=== PATIENT | male | born 1975 | race African-American/Black ===

== ENCOUNTER 2017-10-29 23:39 | Emergency (ER) | payer SELFPAY ==
[~2017-10-29] VITALS: Ht 180.3 cm; Wt 91.0 kg
[2017-10-30] MEDS ORDERED: ACETAMINOPHEN 325MG TABLET PO STA (00:10)
[2017-10-30] MEDS ORDERED: CEFTRIAXONE 1 G PREMIX 50 ML IV ONE (00:15)
[2017-10-30] MEDS ORDERED: ASPIRIN 81MG TABLET PO ONE (00:15)
[2017-10-30] MEDS ORDERED: AZITHROMYCIN 500 MG in DEXT 5% WATER 250 ML IV ONE (00:15)
[2017-10-30] MEDS ORDERED: SODIUM CHLORIDE 0.9% 1000ML BAG (SEPSIS BOLUS) IV ONE (00:15)
[2017-10-30] MEDS ORDERED: NITROGLYCERIN OINT 1GM/INCH UDPKT TD ONE (00:15)
[2017-10-30] MEDS ORDERED: KETOROLAC 30MG/ML VIAL IV NR (00:35)
[2017-10-30 00:42] LABS: BASOPHILS % 0.3 % (0.0-2.0); HEMATOCRIT. 43.6 % (42.0-52.0); HEMOGLOBIN. 14.8 g/dL (14.0-18.0); LYMPHOCYTES % 7.7 % (20.0-50.0); MEAN CORPUSCULAR HEMOGLOBIN 27.9 pg (28.0-32.0); MEAN CORPUSCULAR VOLUME 82.5 fL (80.0-94.0); MEAN PLATELET VOLUME 8.5 fl (7.4-10.4); MONOCYTES % 11.8 % (2.0-8.0); NEUTROPHILS % 80.2 % (40.0-76.0); PLATELET 207 x1000/uL (130-400); RED BLOOD CELL COUNT 5.28 mill/uL (4.7-6.1); RED CELL DISTRIBUTION WIDTH 13.5 % (11.6-14.6)
[2017-10-30 00:50] LABS: INR 1.2; PROTHROMBIN TIME 12.2 sec (9.4-11.6)
[2017-10-30 00:56] LABS: CHLORIDE 97 mEq/L (98-107); ETHANOL BLOOD < 10 mg/dL; TROPONIN I < 0.02 ng/mL (0.00-0.04)
[2017-10-30 01:22] LABS: CLARITY URINE CLEAR (CLEAR); COLOR URINE YELLOW (YELLOW); KETONES URINE 1+ (NEGATIVE); LEUKOCYTE ESTERASE URINE NEGATIVE (NEGATIVE); NITRITE URINE NEGATIVE (NEGATIVE); OCCULT BLOOD URINE 2+ (NEGATIVE); PROTEIN URINE TRACE (NEGATIVE); SPECIFIC GRAVITY URINE 1.015 (1.005-1.030)
[2017-10-30] MEDS ORDERED: MORPHINE SULFATE 2 MG/ML CPJ (NOT FOR IM USE) IV NR (01:35)
[2017-10-30] MEDS ORDERED: MORPHINE SULFATE 4 MG/ML CPJ (NOT FOR IM USE) IV NR (01:38)
[2017-10-30 01:39] LABS: *AMPHETAMINES SCREEN URINE NEGATIVE (NEGATIVE); *BARBITURATES SCREEN URINE NEGATIVE (NEGATIVE); *BENZODIAZEPINES SCREEN URINE NEGATIVE (NEGATIVE); *COCAINE SCREEN URINE NEGATIVE (NEGATIVE); CANNABINOID URINE SCREEN NEGATIVE (NEGATIVE); METHADONE URINE SCREEN NEGATIVE (NEGATIVE); OPIATES URINE SCREEN NEGATIVE (NEGATIVE); PHENCYCLIDINE URINE SCREEN NEGATIVE (NEGATIVE)
[2017-10-30 04:27] VITALS: BP 128/77
== END 2017-10-30 04:35 | disposition home or self-care (01) ==
LOC: ER 23:44
DX: N12 Tubulo-interstitial nephritis, not specified as acute or chronic (principal); J02.9 Acute pharyngitis, unspecified; K76.0 Fatty (change of) liver, not elsewhere classified; I51.9 Heart disease, unspecified; R00.0 Tachycardia, unspecified; D72.829 Elevated white blood cell count, unspecified; F17.200 Nicotine dependence, unspecified, uncomplicated; Z98.61 Coronary angioplasty status; Z79.82 Long term (current) use of aspirin
CPT/HCPCS: 36415; 71045; 74176; 80053; 80305; 81001; 83605; 83690; 83880; 84484; 85025; 85610; 87040; 87086; 93005; 96365; 96366; 96368; 96375; 99285; G0482; J0456; J0696; J1885; J2270; J7030; Z7610; J7060

== ENCOUNTER 2017-10-30 22:34 | Emergency (ER) | payer MEDICAID ==
[~2017-10-30] VITALS: Ht 180.3 cm; Wt 91.0 kg
[2017-10-30 23:37] VITALS: BP 124/79
== END 2017-10-31 04:52 | disposition left against medical advice (07) ==
LOC: ER 22:34
DX: Z53.21 Procedure and treatment not carried out due to patient leaving prior to being seen by health care provider (principal)

== ENCOUNTER 2022-01-10 02:02 | Emergency (ER) | payer MEDICAID ==
[~2022-01-10] VITALS: Ht 180.3 cm; Wt 101.0 kg
[2022-01-10 03:03] LABS: BASOPHILS % 0.9 % (0.0-2.0); EOSINOPHILS % 2.3 % (0.0-5.0); HEMATOCRIT. 49.2 % (42.0-52.0); HEMOGLOBIN. 16.4 g/dL (14.0-18.0); LYMPHOCYTES % 31.9 % (20.0-50.0); MEAN CORPUSCULAR HEMOGLOBIN 28.1 pg (28.0-32.0); MEAN CORPUSCULAR VOLUME 84.1 fL (80.0-94.0); MEAN PLATELET VOLUME 8.9 fl (7.4-10.4); MONOCYTES % 8.8 % (2.0-8.0); NEUTROPHILS % 56.1 % (40.0-76.0); PLATELET 233 x1000/uL (130-400); RED BLOOD CELL COUNT 5.85 mill/uL (4.7-6.1)
[2022-01-10 03:09] LABS: CHLORIDE 107 mEq/L (98-107)
[2022-01-10 03:12] LABS: ETHANOL BLOOD < 10 mg/dL
[2022-01-10] MEDS ORDERED: ACETAMINOPHEN 325MG TABLET PO SCH (04:30)
[2022-01-10 04:38] LABS: *AMPHETAMINES SCREEN URINE NEGATIVE (NEGATIVE); *BARBITURATES SCREEN URINE NEGATIVE (NEGATIVE); *BENZODIAZEPINES SCREEN URINE NEGATIVE (NEGATIVE); *COCAINE SCREEN URINE NEGATIVE (NEGATIVE); METHADONE URINE SCREEN NEGATIVE (NEGATIVE)
[2022-01-10 04:39] LABS: CANNABINOID URINE SCREEN NEGATIVE (NEGATIVE); OPIATES URINE SCREEN NEGATIVE (NEGATIVE); PHENCYCLIDINE URINE SCREEN NEGATIVE (NEGATIVE)
[2022-01-10 05:42] VITALS: BP 134/80
== END 2022-01-10 05:43 | disposition home or self-care (01) ==
LOC: ER 02:02
DX: R07.89 Other chest pain (principal); R51.9 Headache, unspecified; I95.9 Hypotension, unspecified; Z87.440 Personal history of urinary (tract) infections
CPT/HCPCS: 36415; 71045; 80053; 80305; 80320; 83880; 84484; 85025; 99285; G0480